=== PATIENT | male | born 1945 | race Two or more races ===

== ENCOUNTER 2024-11-26 11:54 | Inpatient (IN) | payer OTHER, MEDICARE ==
[~2024-11-26] VITALS: Ht 182.9 cm; Wt 90.5 kg
[2024-11-26 12:47] VITALS: PULSE 86; RESP 13; O2SAT 96
[2024-11-26 13:00] LABS: Basophils # (auto) 0 10 ^3/uL (0-0.2); Basophils % (auto) 0.7 % (0.0-2.0); Eosinophils # (auto) 0.1 10 ^3/uL (0-0.8); Eosinophils % (auto) 1.7 % (0.0-7.0); Hematocrit 40.4 % (41.0-53.0); Hemoglobin 13.9 g/dL (13.5-17.5); Lymphocytes # (auto) 1.3 10 ^3/uL (0.4-5.4); Lymphocytes % (auto) 24.5 % (10.0-50.0); Mean Corpuscular Hemoglobin 30.8 pg (28.0-32.0); Mean Corpuscular Hgb Conc. 34.4 g/dL (32.0-36.0); Mean Corpuscular Volume 89.5 fL (80.0-100.0); Monocytes # (auto) 0.7 10 ^3/uL (0-1.3); Monocytes % (auto) 12.6 % (0.0-12.0); Neutrophils # (auto) 3.3 10 ^3/uL (1.6-8.6); Neutrophils % (auto) 60.5 % (37.0-80.0); Nucleated Red Blood Cells % 0.1 %; Platelet Count (auto) 211 10^3/uL (140-450); Red Blood Cells 4.51 10^6/uL (4.5-5.90); Red Cell Distribution Width 14.3 % (11.8-14.3); White Blood Cell 5.5 10^3/uL (4.4-10.8)
--- NOTE | 2024-11-26 13:04 | DVH ---
EXAM: XY CHEST PORTABLE TECHNIQUE: Single frontal chest radiograph CLINICAL HISTORY: surgery COMPARISON: None Findings/Impression: Frontal chest radiograph demonstrates no acute osseous or superficial soft tissue abnormalities. The trachea is midline. The cardiac silhouette and mediastinum are within normal limits. Minimal right basilar atelectasis. No pneumothorax, pleural effusions, or consolidations.
--- NOTE | 2024-11-26 13:07 | DVH ---
EXAM: XY PELVIS AP CLINICAL HISTORY: surgery COMPARISON: None TECHNIQUE: XY PELVIS AP Findings/Impression: Single frontal view of the pelvis. There is no evidence of an acute fracture, dislocation, blastic, or lytic lesions. Mild left and mode rate right hip degenerative changes. No radiopaque foreign bodies. No joint effusion or superficial soft tissue abnormalities.
[2024-11-26 13:12] LABS: Anion Gap 10 (5-15); Carbon Dioxide 25 mmol/L (20-31); Chloride 105 mmol/L (98-107); Potassium 4.5 mmol/L (3.5-5.1); Sodium 140 mmol/L (136-145)
[2024-11-26 13:16] LABS: INR 1.13 (0.9-1.15); Partial Thromboplastin Time 28.9 SEC (24.5-34.5); Prothrombin Time 11.8 sec (9.3-11.8)
--- NOTE | 2024-11-26 13:17 | ED.PDOC ---
History of Present Illness HPI Comments 79 year old male presents to the ED with a chief complaint of RT hip pain. Patient states he was sent by Dr. Tomlinson from pre-operative testing. Patient states he has a hip replacement scheduled for tomorrow, lives in [place] and was not able to make it to his appointment on 11/24/24. States current pain is 1 0/10, takes Tylenol for pain. No other symptoms or modifying factors present at this time. Chief Complaint: Pelvic Pain Time Seen by MD: 13:10 Reviewed Notes: Medications, Allergies Allergies: Coded Allergies: NO KNOWN ALLERGIES (Unverified , 11/26/24) Information Source: Patient, Relative Mode of Arrival: Ambulatory Severity: Moderate Timing: Hours Duration: Since onset Prehospital treatment: None Past Medical History PAST MEDICAL HISTORY: Denies Surgical History: Denies all surgeries Family History Family History: Reviewed,noncontributory to illness, No family hx of Cancer, No family hx of DM, No family hx of Heart kishor, No family hx of HTN, No family hx ofKidney kishor, No family hx of Liver kishor, No family hx of Lung kishor, No family hx of Stroke Social History Smoker: Non-Smoker Alcohol: Denies ETOH Use Drugs: Denies Drug Use Lives In: Home Constitutional: denies: chills, diaphoresis, fatigue, fever, malaise, sweats, weakness, others EENTM: denies: blurred vision, double vision, ear bleeding, ear discharge, ear drainage, ear pain, ear ringing, eye pain, eye redness, hearing loss, mouth pain, mouth swelling, nasal discharge, nose bleeding, nose congestion, nose pain, photophobia, tearing, throat pain, throat swelling, voice changes, others Respiratory: denies: cough, hemoptysis, orthopnea, SOB at rest, shortness of breath, SOB with excertion, stridor, wheezing, others Cardiovascular: denies: chest pain, dizzy spells, diaphoresis, Dyspnea on exertion, edema, irregular heart beat, left arm pain, lightheadedness, palpitations, PND, syncope, others Gastrointestinal: denies: abdomen distended, abdominal pain, blood streaked bowels, constipated, diarrhea, dysphagia, difficulty swallowing, hematemesis, melena, nausea, poor appetite, poor fluid intake, rectal bleeding, rectal pain, vomiting, others Genitourinary: denies: burning, dysuria, flank pain, frequency, hematuria, incontinence, penile discharge, penile sore, pain, testicle pain, testicle swelling, urgency, others Neurological: denies: dizziness, fainting, headache, left sided numbness, left sided weakness, numbness, paresthesia, pre-existing deficit, right sided numbness, right sided weakness, seizure, speech problems, tingling, tremors, weakness, others Musculoskeletal: reports: others (RT hip pain, RT knee pain, RT pelvic pain); denies: back pain, gout, joint pain, joint swelling, muscle pain, muscle stiffness, neck pain Integumetry: denies: bruises, change in color, change in hair/nails, dryness, laceration, lesions, lumps, rash, wounds, others Allergic/Immunocompromised: denies: Difficulty Healing, Frequent Infections, Hives, Itching, others Hematologic/Lymphatic: denies: anemia, blood clots, easy bleeding, easy bruising, swollen glands, others Endocrine: denies: excessive hunger, excessive sweating, excessive thirst, excessive urination, flushing, intolerance to cold, intolerance to heat, unexplained weight gain, unexplained weight loss, others Psychiatric: denies: anxiety, bipolar disorder, depression, hopeless, panic disorder, schizophrenia, sleepless, suicidal, others All Other Systems: Reviewed and Negative Physical Exam General Appearance: Normal HEENT: Normal ENT Inspection, Pharynx Normal, TMs Normal Neck: Full Range of Motion, Non-Tender, Normal, Normal Inspection Respiratory: Chest Non-Tender, Lungs Clear, No Accessory Muscle Use, No Respiratory Distress, Normal Breath Sounds Cardiovascular: No Edema, No JVD, No Murmur, No Gallop, Normal Peripheral Pulses, Regular Rate/Rhythm Breast Exam: Deferred Gastrointestinal: No Organomegaly, Non Tender, No Pulsatile Mass, Normal Bowel Sounds, Soft Genitalia: Deferred Pelvic: Deferred Rectal: Deferred Extremities: No calf tenderness, Normal capillary refill, Normal inspection, Normal range of motion, Non-tender, No pedal edema Musculoskeletal : Apperance: Normal Neurologic: Alert, wood heel back liner II-XII nml as Tested, No Motor Deficits, Normal Affect, Normal Mood, No Sensory Deficits Cerebellar Function: Normal Reflexes: Normal Skin: Dry, Normal Color, Warm Lymphatic: No Adenopathy Was a procedure done? Was a procedure done?: No Differential Dx Considerations may include: Right hip strain, hip fracture, X-Ray, Labs, Meds, VS Vital Signs Date Time Temp Pulse Resp B/P (MAP) Pulse Ox O2 Delivery O2 Flow Rate FiO2 11/26/24 12:47 86 13 96 Room Air* 0 21 11/26/24 12:47 97.7 97 13 156/88 (110) 96 97.7 11/26/24 12:28 98.3 87 16 104/83 (90) 97 98.3 Lab Test 11/26/24 12:53 Range/Units White Blood Count 5.5 4.4-10.8 10^3/uL Red Blood Count 4.51 4.5-5.90 10^6/uL Hemoglobin 13.9 13.5-17.5 g/dL Hematocrit 40.4 L 41.0-53.0 % Mean Corpuscular Volume 89.5 80.0-100.0 fL Mean Corpuscular Hemoglobin 30.8 28.0-32.0 pg Mean Corpuscular Hemoglobin Concent 34.4 32.0-36.0 g/dL Red Cell Distribution Width 14.3 11.8-14.3 % Platelet Count 211 140-450 10^3/uL Mean Platelet Volume 7.0 6.9-10.8 fL Neutrophils (%) (Auto) 60.5 37.0-80.0 % Lymphocytes (%) (Auto) 24.5 10.0-50.0 % Monocytes (%) (Auto) 12.6 H 0.0-12.0 % Eosinophils (%) (Auto) 1.7 0.0-7.0 % Basophils (%) (Auto) 0.7 0.0-2.0 % Neutrophils # (Auto) 3.3 1.6-8.6 10 ^3/uL Lymphocytes # (Auto) 1.3 0.4-5.4 10 ^3/uL Monocytes # (Auto) 0.7 0-1.3 10 ^3/uL Eosinophils # (Auto) 0.1 0-0.8 10 ^3/uL Basophils # (Auto) 0 0-0.2 10 ^3/uL Nucleated Red Blood Cells 0.1 % Prothrombin Time 11.8 9.3-11.8 sec Prothrombin Time INR 1.13 0.9-1.15 Activated Partial Thromboplast Time 28.9 24.5-34.5 SEC Sodium Level 140 136-145 mmol/L Potassium Level 4.5 3.5-5.1 mmol/L Chloride Level 105 98-107 mmol/L Carbon Dioxide Level 25 20-31 mmol/L Anion Gap 10 5-15 Blood Urea Nitrogen 26 H 9-23 mg/dL Creatinine 1.52 H 0.700-1.30 mg/dL Glomerular Filtration Rate Calc 46 >90 mL/min BUN/Creatinine Ratio 17.1 10.0-20.0 Serum Glucose 207 H 74-106 mg/dL Calcium Level 10.0 8.7-10.4 mg/dL [place] [address] Ph: [phone] DIAGNOSTIC IMAGING Diagnostic Imaging Report : [id number] Signed PATIENT: JACKY LOZANO ACCT: [id number] UNIT: [id number] : 1945 LOC: ER ROOM / BED: / AGE / SEX: 79 / M ADM STATUS: REG ER SERVICE 1232 ORDERING PHYSICIAN: GELY ARIAS MD PROCEDURE(s): CXRP - CHEST PORTABLE REASON: surgery ORDER NUMBER(s): [id number], ACCESSION NUMBER(s): [id number] EXAM: XY CHEST PORTABLE TECHNIQUE: Single frontal chest radiograph CLINICAL HISTORY: surgery COMPARISON: None Findings/Impression: Frontal chest radiograph demonstrates no acute osseous or superficial soft tissue abnormalities. The trachea is midline. The cardiac silhouette and mediastinum are within normal limits. Minimal right basilar atelectasis. No pneumothorax, pleural effusions, or consolidations. ATED BY: MOLLY JEAN BAPTISTE DO DICTATED DATE/TIME: 11/26/24 1301 SIGNED BY: MOLLY JEAN BAPTISTE DO SIGNED DATE/TIME: 11/26/24 1301 CC: [place] [address] Ph: [phone] DIAGNOSTIC IMAGING Diagnostic Imaging Report : [id number] Signed PATIENT: JACKY LOZANO ACCT: [id number] UNIT: [id number] : 1945 LOC: ER ROOM / BED: / AGE / SEX: 79 / M ADM STATUS: REG ER SERVICE 1232 ORDERING PHYSICIAN: GELY ARIAS MD PROCEDURE(s): PELVS - PELVIS AP REASON: surgery ORDER NUMBER(s): [id number], ACCESSION NUMBER(s): [id number] EXAM: XY PELVIS AP CLINICAL HISTORY: surgery COMPARISON: None TECHNIQUE: XY PELVIS AP Findings/Impression: Single frontal view of the pelvis. There is no evidence of an acute fracture, dislocation, blastic, or lytic lesions. Mild left and moderate right hip degenerative changes. No radiopaque foreign bodies. No joint effusion or superficial soft tissue abnormalities. ATED BY: MOLLY JEAN BAPTISTE DO DICTATED DATE/TIME: 11/26/24 1304 SIGNED BY: MOLLY JEAN BAPTISTE DO SIGNED DATE/TIME: 11/26/24 1304 CC: Time of 1ST Reevaluation: 13:40 Reevaluation 1ST: Unchanged Patient Education/Counseling: Diagnosis, Treatment, Prognosis Family Education/Counseling: Diagnosis, Treatment, Prognosis Departure 1 Departure Time of Disposition: 13:32 (Patient with right hip strain and difficulty ambulating went uncontrollable pain. We will admit patient for further workup and expert consultation) Impression: Primary Impression: Strain of right hip Qualified Codes: S76.011A - Strain of muscle, fascia and tendon of right hip, initial encounter Additional Impression: Right hip pain Disposition: ADMITTED INPATIENT Admit to: Med Surg Condition: Serious Critical Care Note Critical Care Time?: No Stability Stability form required: No I personally scribed for GELY ARIAS MD ([email or web address]) on 11/26/24 at 13:17. Electronically submitted by Letty Brock ([email or web address]). I personally scribed for GELY ARIAS MD ([email or web address]) on 11/26/24 at 13:18. Electronically submitted by Letty Brock ([email or web address]). GELY ARIAS MD Nov 26, 2024 13:17
[2024-11-26 13:18] LABS: BUN/Creatinine Ratio 17.1 (10.0-20.0)
[2024-11-26 13:22] LABS: Blood Urea Nitrogen 26 mg/dL (9-23); Glucose 207 mg/dL (74-106)
[2024-11-26] MEDS ORDERED: MORPHINE SULFATE INJ 2 MG/ml SYRG IV PRN (19:30)
[2024-11-26] MEDS ORDERED: ONDANSETRON HCL 4 MG/2 ML VIAL IV PRN (19:30)
[2024-11-26] MEDS: SODIUM CHLORIDE 0.9% 1,000 ML IV ONE (19:40)
[2024-11-26 21:29] VITALS: BP 157/85; PULSE 94; RESP 18; TEMP 97.7; O2SAT 94
[2024-11-26 21:35] VITALS: BP 157/85; PULSE 94; RESP 18; TEMP 97.7; O2SAT 98
[2024-11-26] MEDS ORDERED: AMLO1TAB23 PO (21:42)
[2024-11-26] MEDS ORDERED: INSU300I5 SC (21:42)
[2024-11-26] MEDS ORDERED: LOSA-535 PO (21:42)
[2024-11-26] MEDS: MORPHINE SULFATE 4 MG/ML SYR/VIAL IV PRN (22:22)
--- NOTE | 2024-11-26 23:29 | DVHHP2 ---
History of Present Illness Reason for Visit: Hip pain History of Present Illness 79-year-old male presents for evaluation of right hip pain. Patient with a history of chronic right hip pain was sent in by his orthopedic surgeon to have a right hip replacement tomorrow morning. Denies any other acute complaints. Past Medical History Denies Past Surgical History Denies Family History Noncontributory Smoke: No ALCOHOL: none Drugs: None Lives: with Family Review of Systems Review of Systems Review of systems are currently negative otherwise addressed in HPI. Allergies: Coded Allergies: NO KNOWN ALLERGIES (Unverified , 11/26/24) Medications Current Medications Medications Dose Ordered Sig/Anjana Route Start Time Stop Time Status Last Admin Dose Admin Ondansetron HCl 4 mg Q4HP PRN IV 11/26/24 19:30 Morphine Sulfate 2 mg Q4HPRN PRN IV 11/26/24 22:30 11/26/24 22:22 2 MG Exam Vital Signs Vital Signs Date Time Temp Pulse Resp B/P (MAP) Pulse Ox O2 Delivery O2 Flow Rate FiO2 11/26/24 22:22 94 18 157/85 11/26/24 21:35 97.7 98 97.7 11/26/24 21:30 Room Air* 0 21 Exam Gen: 79-year-old male in mild distress Skin: Warm, dry, normal color and texture, no rash. HEENT: Normocephalic atraumatic, mucous membranes moist and pink. Neck: Cervical and supraclavicular nodes normal without enlargement, trachea is midline, thyroid gland is normal without masses. Pulmonary: Clear to auscultation and percussion bilaterally. Cardiac: Regular rate and rhythm. No murmur Abdomen: Soft, nontender, nondistended, bowel sounds present all 4 quadrants, no guarding, no rigidity, no organomegaly. Extremities: No cyanosis, clubbing, no edema Neuro: Cranial nerves II through XII grossly intact, normal affect and speech, no focal motor deficits. Labs/Xrays ORDERING PHYSICIAN: GELY ARIAS MD PROCEDURE(s): CXRP - CHEST PORTABLE REASON: surgery ORDER NUMBER(s): [id number], ACCESSION NUMBER(s): [id number] EXAM: XY CHEST PORTABLE TECHNIQUE: Single frontal chest radiograph CLINICAL HISTORY: surgery COMPARISON: None Findings/Impression: Frontal chest radiograph demonstrates no acute osseous or superficial soft tissue abnormalities. The trachea is midline. The cardiac silhouette and mediastinum are within normal limits. Minimal right basilar atelectasis. No pneumothorax, pleural effusions, or consolidations. RING PHYSICIAN: GELY ARIAS MD PROCEDURE(s): PELVS - PELVIS AP REASON: surgery ORDER NUMBER(s): [id number], ACCESSION NUMBER(s): [id number] EXAM: XY PELVIS AP CLINICAL HISTORY: surgery COMPARISON: None TECHNIQUE: XY PELVIS AP Findings/Impression: Single frontal view of the pelvis. There is no evidence of an acute fracture, dislocation, blastic, or lytic lesions. Mild left and moderate right hip degenerative changes. No radiopaque foreign bodies. No joint effusion or superficial soft tissue abnormalities. Labs Test 11/26/24 12:53 Range/Units White Blood Count 5.5 4.4-10.8 10^3/uL Red Blood Count 4.51 4.5-5.90 10^6/uL Hemoglobin 13.9 13.5-17.5 g/dL Hematocrit 40.4 L 41.0-53.0 % Mean Corpuscular Volume 89.5 80.0-100.0 fL Mean Corpuscular Hemoglobin 30.8 28.0-32.0 pg Mean Corpuscular Hemoglobin Concent 34.4 32.0-36.0 g/dL Red Cell Distribution Width 14.3 11.8-14.3 % Platelet Count 211 140-450 10^3/uL Mean Platelet Volume 7.0 6.9-10.8 fL Neutrophils (%) (Auto) 60.5 37.0-80.0 % Lymphocytes (%) (Auto) 24.5 10.0-50.0 % Monocytes (%) (Auto) 12.6 H 0.0-12.0 % Eosinophils (%) (Auto) 1.7 0.0-7.0 % Basophils (%) (Auto) 0.7 0.0-2.0 % Neutrophils # (Auto) 3.3 1.6-8.6 10 ^3/uL Lymphocytes # (Auto) 1.3 0.4-5.4 10 ^3/uL Monocytes # (Auto) 0.7 0-1.3 10 ^3/uL Eosinophils # (Auto) 0.1 0-0.8 10 ^3/uL Basophils # (Auto) 0 0-0.2 10 ^3/uL Nucleated Red Blood Cells 0.1 % Prothrombin Time 11.8 9.3-11.8 sec Prothrombin Time INR 1.13 0.9-1.15 Activated Partial Thromboplast Time 28.9 24.5-34.5 SEC Sodium Level 140 136-145 mmol/L Potassium Level 4.5 3.5-5.1 mmol/L Chloride Level 105 98-107 mmol/L Carbon Dioxide Level 25 20-31 mmol/L Anion Gap 10 5-15 Blood Urea Nitrogen 26 H 9-23 mg/dL Creatinine 1.52 H 0.700-1.30 mg/dL Glomerular Filtration Rate Calc 46 >90 mL/min BUN/Creatinine Ratio 17.1 10.0-20.0 Serum Glucose 207 H 74-106 mg/dL Calcium Level 10.0 8.7-10.4 mg/dL Assessment/Plan Assessment/Plan Assessment Right hip pain Plan Admit the patient to [facility] to the hospitalist Orthopedic consultation Pain management NPO Continue treatment per orders Plan discussed with: Patient My Orders Orders - SHIREEN RAMIREZ Procedure Category Date Status Time Admit ADMIT 11/26/24 Transmitted 19:18 Ondansetron Hcl PHA 11/26/24 In Process (Zofran) 19:30 Npo (Nothing By DIET 11/27/24 Transmitted Mouth) Diet Breakfast Condition: Stable UGO 11/26/24 In Process 19:18 Bedrest With Bathroom UGO 11/26/24 In Process Privileg 19:18 Sodium Chloride 0.9% PHA 11/26/24 In Process 19:30 Morphine Sulfate PHA 11/26/24 In Process Injection 22:30 Date of Service: Nov 26, 2024 Billing Provider: SHIREEN RAMIREZ Common Visit Codes: [id number] INP/OBS CARE (MOD) SHIREEN RAMIREZ Nov 26, 2024 23:29
[2024-11-27 01:00] VITALS: BP 143/83; PULSE 80; RESP 18; TEMP 98.5; O2SAT 98
[2024-11-27 01:57] LABS: Urine Bacteria None Seen /hpf (None Seen)
[2024-11-27 02:12] LABS: Urine Blood TRACE /uL (Negative); Urine Clarity Clear (Clear); Urine Color Light-Yellow (Yellow); Urine Mucus FEW (None Seen); Urine Protein, UAD 1+ (Negative); Urine Specific Gravity 1.014 (1.001-1.035); Urine Squamous Epithelial Cell None Seen /hpf (<5); Urine Urobilinogen Normal (Negative); Urine WBC < 1 /HPF (0-3); Urine pH 6.5 (5.0-9.0)
[2024-11-27 05:00] VITALS: BP 151/86; PULSE 72; RESP 18; TEMP 98.2; O2SAT 98
--- NOTE | 2024-11-27 05:30 | ECG ---
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
[2024-11-27 08:00] VITALS: PULSE 82; RESP 18; O2SAT 95
[2024-11-27 09:00] VITALS: BP 154/100; PULSE 82; RESP 18; TEMP 98.2; O2SAT 95
[2024-11-27] MEDS ORDERED: MORPHINE SULF PF 5 MG/10 ML VIAL ONE ×2 (12:48→14:34)
[2024-11-27] MEDS ORDERED: fentaNYL CITRATE 100 MCG/2 ML VL ONE (12:48)
[2024-11-27] MEDS ORDERED: MIDAZOLAM HCL 2MG/2ML 2ml VIAL (1mg/ml) ONE (12:48)
[2024-11-27] MEDS ORDERED: LIDOCAINE W/ EPINEPHRINE 1% 20ML VIAL ONE (12:49)
[2024-11-27] MEDS ORDERED: METOCLOPRAMIDE HCL 5MG/ml INJ 2ml VIAL ONE (12:49)
[2024-11-27] MEDS ORDERED: ONDANSETRON HCL 4 MG/2 ML VIAL ONE (12:49)
[2024-11-27] MEDS ORDERED: PROPOFOL 10 MG/ML 20 ML IV ONE (13:48)
[2024-11-27] MEDS ORDERED: ROCURONIUM 10MG/ML 10ML VIAL IV ONE (13:48)
--- NOTE | 2024-11-27 14:14 | DVHPN2 ---
Subjective Denies any symptoms at this time Reviewed: Care Plan, H&P, Labs, Medications Changes from previous H/P or p: No Changes Objective Vitals Vital Signs Date Time Temp Pulse Resp B/P (MAP) Pulse Ox O2 Delivery O2 Flow Rate FiO2 11/27/24 09:00 98.2 82 18 154/100 (118) 95 98.2 11/26/24 21:30 Room Air* 0 21 Intake/Output Intake and Output 11/27/24 07:00 Intake Total 750 ml Output Total 800 ml Balance -50 ml Intake Oral 0 ml IV Total 750 ml Output Urine Total 800 ml General Appearance: Alert, Oriented X3, Cooperative, No acute distress HEENT: Atraumatic Cardiovascular: Normal S1, Normal S2 Abdomen: Normal bowel sounds, Soft, No tenderness, No hepatospenomegaly Musculoskeletal: Normal sensory function, Normal motor function Neuro: Normal speech Skin: Dry, Intact Psych/Mental Status: Mental status NL, Mood NL Medications Current Medications Medications Dose Ordered Sig/Anjana Route Start Time Stop Time Status Last Admin Dose Admin Ondansetron HCl 4 mg Q4HP PRN IV 11/26/24 19:30 Morphine Sulfate 2 mg Q4HPRN PRN IV 11/26/24 22:30 11/26/24 22:22 2 MG Laboratory Results Laboratory Tests 11/26/24 12:53 Urinalysis Test 11/27/24 01:47 Urine Color Light-yellow (Yellow) Urine Clarity Clear (Clear) Urine pH 6.5 (5.0-9.0) Urine Specific [place] 1.014 (1.001-1.035) Urine Protein 1+ (Negative) H Urine Ketones Negative (Negative) Urine Blood Trace /uL (Negative) H Urine Nitrite Negative (Negative) Urine Bilirubin Negative (Negative) Urine Urobilinogen Normal mg/dL (Negative) Urine Leukocyte Esterase Negative /uL (Negative) Urine RBC 6 /hpf (0 - 3) Urine Microscopic WBC < 1 /HPF (0-3) Urine Squamous Epithelial Cells None seen /hpf (<5) Urine Bacteria None seen /hpf (None Seen) Urine Mucus Few (None Seen) Urine Glucose 2+ mg/dL (Normal) H Labs and/or images reviewed: Labs reviewed by me, Image(s) reviewed by me Assessment/Plan Assessment/Plan Impression: Right hip pain -CKD stage IIIA Plan: -ortho surgery consultation: Plans for total right hip replacement -pain management -PUD, DVT prophylaxis -repeat labs in a.m. Total time spent with patient discussing and formulating plan of care: 35 minutes. This medical document was created using an electronic medical record system with [employer] dictation system. Although this document has been carefully reviewed, there may still be some phonetic and typographical errors. These areas are purely typographical due to imperfections of the software programs, and do not reflect any compromise in the patient's medical care. Plan discussed with: Patient, Other (RN) Date of Service: Nov 27, 2024 Billing Provider: DALE GREY NP Common Visit Codes: [id number] INP/OBS CARE(HIGH) DALE GREY NP Nov 27, 2024 14:14
[2024-11-27] MEDS ORDERED: DexAMETHasone SOD PHOS 10MG/1ML VIAL INJ ONE (14:28)
[2024-11-27] MEDS ORDERED: SUGAMMADEX 200mg/2ml Vial (100MG/ML) IV ONE (14:32)
[2024-11-27] MEDS ORDERED: KETOROLAC TROMETH 30 MG/ML 1ML VIAL ONE (14:34)
[2024-11-27] MEDS ORDERED: HYDROmorphone HCL 2 MG/ML VL/or syr IV PRN (15:15)
[2024-11-27] MEDS ORDERED: OXYCODONE W/ ACETAMINOPHEN 5/325MG TABLET PO PRN (15:15)
[2024-11-27 15:22] VITALS: PULSE 92; RESP 17; O2SAT 96
--- NOTE | 2024-11-27 15:29 | DVHOP2 ---
Operative Report - 2 Report Details Date: 11/27/24 Preop Diagnosis: Right hip osteonecrosis, osteoarthritis Postop Diagnosis: same Surgeon: López Katz MD Payroll Human Resources Assistant: Gurwinder Nava NP, MD Anesthesiologist: Frankie WAN Anesthesia: General, Regional Implant: migeul Consent: The patient was informed of the risks and benefits of the procedure. These include but are not limited to complications of anesthesia, postoperative infection, incomplete relief of symptoms, recurrence of symptoms, damage to blood vessels, nerves and tendons, deep venous thrombosis, pulmonary embolism and possible need for repeat surgery in the future. Complications: none Estimated Blood Loss: 250ml Name of Procedure Performed Right Total Hip Arthroplasty Procedure Details Procedure Details: The patient was brought to the operating room and placed in the lateral decubitus position. After adequate induction of anesthesia, the right hip was prepped and draped in the usual sterile fashion. A minimally invasive posterior approach was utilized. A skin incision was made over the posterior aspect of the right hip. Dissection was carried down through the subcutaneous tissue, and the fascia niki was incised in line with the skin incision. The short external rotators were identified, tagged, and released to expose the hip joint capsule. The hip capsule was incised, and the hip was dislocated posteriorly. The femoral head was resected using a power saw. Attention was then turned to the acetabulum, which was reamed sequentially to accommodate a size 58 [employer] G7 dual mobility cup. The cup was impacted into place with appropriate version and inclination, and screws were used for additional fixation as needed. Attention was then turned to the femur. The femoral canal was prepared with sequential broaching, and a size 12.5 extended RNL stem was selected and impacted into the femoral canal. A -3.5 head was placed onto the stem. The hip was reduced, and stability was assessed through a full range of motion. Excellent stability was confirmed with no impingement or dislocation. The wound was irrigated with copious amounts of normal saline. The short external rotators and capsule were repaired. The fascia niki was closed with interrupted sutures. The subcutaneous tissue was closed with absorbable sutures, and the skin was closed with luiza. A sterile dressing was applied, and the patient was transferred to the recovery room in stable condition. Condition Good Disposition Home with Health Services LÓPEZ KATZ DO Nov 27, 2024 15:29
[2024-11-27] MEDS ORDERED: hydrALAZINE HCL 20 MG/ML VL IV PRN (15:45)
[2024-11-27] MEDS: HYDROmorphone HCL 2 MG/ML VL/or syr IV PRN (15:48)
[2024-11-27] MEDS: HYDROmorphone HCL 2 MG/ML VL/or syr ONE (16:18)
--- NOTE | 2024-11-27 20:07 | DVH ---
CLINICAL INDICATION: postop TECHNIQUE: 2 radiographic views of the right hip were obtained. Comparison: None FINDINGS/IMPRESSION: There is no evidence of acute fracture or dislocation. Total hip replacement is noted on the right in normal alignment. There are no acute fractures. The visualized joint space is well maintained. The alignment is anatomical. There is no radiopaque foreign body.
[2024-11-27 21:00] VITALS: BP 138/84; PULSE 99; RESP 19; TEMP 97.2; O2SAT 96
[2024-11-27] MEDS: ceFAZolin 2 GM/D5W50ml 50 ML IV SCH (21:22)
[2024-11-27] MEDS: OXYCODONE W/ ACETAMINOPHEN 5/325MG TABLET PO PRN (21:33)
[2024-11-28 00:56] VITALS: BP 144/88; PULSE 100; RESP 17; TEMP 98.2; O2SAT 96
[2024-11-28 05:00] VITALS: BP 121/80; PULSE 99; RESP 17; TEMP 99; O2SAT 95
[2024-11-28] MEDS: KETOROLAC TROMETH 30 MG/ML 1ML VIAL IV ONE (07:32)
[2024-11-28] MEDS: METOCLOPRAMIDE HCL 5MG/ml INJ 2ml VIAL IV ONE (07:32)
[2024-11-28] MEDS: ONDANSETRON HCL 4 MG/2 ML VIAL IV ONE (07:33)
--- NOTE | 2024-11-28 08:12 | DVHPN2 ---
Progress Note Date Seen: Nov 28, 2024 Medical Necessity Reason Pt with a Central, PICC or Fol: No Subjective Patient reports: No new complaints Objective vital signs Vital Sign Date Time Temp Pulse Resp B/P (MAP) Pulse Ox O2 Delivery O2 Flow Rate FiO2 11/28/24 05:00 99.0 99 17 121/80 (94) 95 99.0 11/27/24 20:10 Room Air* 0 21 Total Intake and Output 11/27/24 11/27/24 11/28/24 15:00 23:00 07:00 Intake Total 100 ml 0 ml 250 ml Output Total 750 ml 515 ml Balance 100 ml -750 ml -265 ml medications Current Medications Medications Dose Ordered Sig/Anjana Route Start Time Stop Time Status Last Admin Dose Admin Ondansetron HCl 4 mg Q4HP PRN IV 11/26/24 19:30 Morphine Sulfate 2 mg Q4HPRN PRN IV 11/26/24 22:30 11/28/24 00:04 2 MG Cefazolin Sodium/ Dextrose 50 ml @ 50 mls/hr Q8HR IV 11/27/24 22:00 11/28/24 06:17 50 MLS/HR Hydromorphone HCl 1 mg Q2HPRN PRN IV 11/27/24 15:15 Hold Oxycodone/ Acetaminophen 1 tab Q4HP PRN PO 11/27/24 15:15 11/27/24 21:33 1 TAB Oxycodone/ Acetaminophen 2 tab Q4HP PRN PO 11/27/24 15:15 Hold Enoxaparin Sodium 40 mg DAILY SC 11/28/24 10:00 Examination: GENERAL:Normal, MSK:Abnormal laboratory and microbiology Laboratory Tests 11/26/24 12:53 Test 11/26/24 12:53 Range/Units Serum Glucose 207 H 74-106 mg/dL Problem List/Assessment/Plan Problem List/Assessment/Plan 79 year old male who is s/p right TASNEEM POD 1 1. WBAT with walker 2. Physical therapy 3. discussed posterior hip precautions 4. DVT ppx 5. pain control Plan discussed with: Patient My Orders My Orders Orders - RUEL HENDERSON NP Procedure Category Date Status Time R Hip Complete Xray XY 11/27/24 Resulted 15:12 Cefazolin 2 PHA 11/27/24 In Process [id number] (Ancef) 22:00 Hydromorphone PHA 11/27/24 In Process Injection (Dilaudid 15:15 Oxycodone W/ Acet PHA 11/27/24 In Process 5/325mg Tab (Percocet 15:15 Oxycodone W/ Acet PHA 11/27/24 In Process 5/325mg Tab (Percocet 15:15 Pt Request For Service PT 11/27/24 Logged 15:12 Weight Bearing UGO 11/27/24 In Process 15:12 Regular Diet DIET 11/27/24 Transmitted Dinner Advance Diet As UGO 11/27/24 In Process Tolerated 15:12 Enoxaparin Sodium PHA 11/28/24 In Process (Lovenox) 10:00 Date of Service: Nov 28, 2024 Billing Provider: GERBER FLAHERTY MD Common Visit Codes: NOT BILLABLE RUEL HENDERSON NP Nov 28, 2024 08:12
[2024-11-28 09:00] VITALS: BP 132/84; PULSE 98; RESP 15; TEMP 99.3; O2SAT 97
[2024-11-28] MEDS: ENOXAPARIN SOD 40 MG/0.4 ML SYRINGE SC SCH (09:34)
[2024-11-28 10:35] LABS: Chloride 104 mmol/L (98-107); Potassium 4.5 mmol/L (3.5-5.1)
[2024-11-28 10:36] LABS: Anion Gap 11 (5-15); Basophils # (auto) 0 10 ^3/uL (0-0.2); Basophils % (auto) 0.2 % (0.0-2.0); Eosinophils # (auto) 0 10 ^3/uL (0-0.8); Hematocrit 33.2 % (41.0-53.0); Hemoglobin 11.4 g/dL (13.5-17.5); Lymphocytes # (auto) 0.9 10 ^3/uL (0.4-5.4); Lymphocytes % (auto) 12.2 % (10.0-50.0); Mean Corpuscular Hemoglobin 30.7 pg (28.0-32.0); Mean Corpuscular Hgb Conc. 34.5 g/dL (32.0-36.0); Monocytes # (auto) 1.1 10 ^3/uL (0-1.3); Monocytes % (auto) 14.5 % (0.0-12.0); Neutrophils # (auto) 5.4 10 ^3/uL (1.6-8.6); Neutrophils % (auto) 73.1 % (37.0-80.0); Platelet Count (auto) 214 10^3/uL (140-450); Red Blood Cells 3.73 10^6/uL (4.5-5.90); Red Cell Distribution Width 14.5 % (11.8-14.3); White Blood Cell 7.4 10^3/uL (4.4-10.8)
[2024-11-28 10:37] LABS: Calcium 9.2 mg/dL (8.7-10.4)
[2024-11-28 10:41] LABS: BUN/Creatinine Ratio 16.8 (10.0-20.0)
[2024-11-28 10:43] LABS: Blood Urea Nitrogen 26 mg/dL (9-23); Carbon Dioxide 20 mmol/L (20-31); Glucose 383 mg/dL (74-106); Sodium 135 mmol/L (136-145)
[2024-11-28 13:00] VITALS: BP 140/78; PULSE 104; RESP 19; TEMP 98.6; O2SAT 95
[2024-11-28] MEDS ORDERED: DEXTROSE (50%) 50ML SYRG IV PRN (13:45)
[2024-11-28] MEDS: MORPHINE SULFATE 4 MG/ML SYR/VIAL IV PRN (14:22)
--- NOTE | 2024-11-28 14:46 | DVHPN2 ---
Subjective Patient reports having 10/10 pain to right hip. Reviewed: Care Plan, H&P, Labs, Medications Changes from previous H/P or p: No Changes General: Per HPI Objective Vitals Vital Signs Date Time Temp Pulse Resp B/P (MAP) Pulse Ox O2 Delivery O2 Flow Rate FiO2 11/28/24 14:22 104 21 140/78 11/28/24 13:00 98.6 95 98.6 11/28/24 08:10 Room Air* 0 21 Intake/Output Intake and Output 11/28/24 07:00 Intake Total 350 ml Output Total 1265 ml Balance -915 ml Intake Oral 200 ml IV Total 150 ml Output Urine Total 1265 ml General Appearance: Alert, Oriented X3, Cooperative, No acute distress HEENT: Atraumatic Cardiovascular: Normal S1, Normal S2 Abdomen: Normal bowel sounds, Soft, No tenderness, No hepatospenomegaly Musculoskeletal: Normal sensory function, Normal motor function Neuro: Normal speech Skin: Dry, Intact Psych/Mental Status: Mental status NL, Mood NL Medications Current Medications Medications Dose Ordered Sig/Anjana Route Start Time Stop Time Status Last Admin Dose Admin Ondansetron HCl 4 mg Q4HP PRN IV 11/26/24 19:30 Cefazolin Sodium/ Dextrose 50 ml @ 50 mls/hr Q8HR IV 11/27/24 22:00 11/28/24 14:22 50 MLS/HR Hydromorphone HCl 1 mg Q2HPRN PRN IV 11/27/24 15:15 Hold Oxycodone/ Acetaminophen 1 tab Q4HP PRN PO 11/27/24 15:15 11/28/24 12:52 1 TAB Oxycodone/ Acetaminophen 2 tab Q4HP PRN PO 11/27/24 15:15 Hold Enoxaparin Sodium 40 mg DAILY SC 11/28/24 10:00 11/28/24 09:34 40 MG Pantoprazole Sodium 40 mg DAILY@0600 PO 11/29/24 06:00 Diagnostic Test (Pha) 1 strip ACHS 11/28/24 17:00 Insulin Human Regular HS SC 11/28/24 22:00 Insulin Human Regular AC SC 11/28/24 17:00 Dextrose 50 ml UD PRN IV 11/28/24 13:45 Morphine Sulfate 2 mg Q3HPRN PRN IV 11/28/24 13:45 11/28/24 14:22 2 MG Laboratory Results Laboratory Tests 11/28/24 10:15 Chemistry Test 11/28/24 10:15 Calcium Level 9.2 mg/dL (8.7-10.4) HgA1c, TSH Test 11/28/24 10:15 Hemoglobin A1c 8.1 % A1C (<5.7) H Urinalysis Test 11/27/24 01:47 Urine Color Light-yellow (Yellow) Urine Clarity Clear (Clear) Urine pH 6.5 (5.0-9.0) Urine Specific [place] 1.014 (1.001-1.035) Urine Protein 1+ (Negative) H Urine Ketones Negative (Negative) Urine Blood Trace /uL (Negative) H Urine Nitrite Negative (Negative) Urine Bilirubin Negative (Negative) Urine Urobilinogen Normal mg/dL (Negative) Urine Leukocyte Esterase Negative /uL (Negative) Urine RBC 6 /hpf (0 - 3) Urine Microscopic WBC < 1 /HPF (0-3) Urine Squamous Epithelial Cells None seen /hpf (<5) Urine Bacteria None seen /hpf (None Seen) Urine Mucus Few (None Seen) Urine Glucose 2+ mg/dL (Normal) H Labs and/or images reviewed: Labs reviewed by me, Image(s) reviewed by me Assessment/Plan Assessment/Plan Impression: Right hip pain -CKD stage IIIA -diabetes mellitus -primary hypertension -degenerative joint disease of back, left shoulder, bilateral knee Plan: -regular insulin sliding scale -pain management: Increase Percocet to 10/3251 tabs every 6 hours as needed, continue IV morphine for breakthrough pain -continue physical therapy. Reports of walking 50 ft today -bowel regimen -PUD, DVT prophylaxis Total time spent with patient discussing and formulating plan of care: 35 minutes. This medical document was created using an electronic medical record system with [employer] dictation system. Although this document has been carefully reviewed, there may still be some phonetic and typographical errors. These areas are purely typographical due to imperfections of the software programs, and do not reflect any compromise in the patient's medical care. Plan discussed with: Patient, Other (RN) My Orders Orders - DALE GREY NP Procedure Category Date Status Time Pantoprazole Tablet PHA 11/29/24 In Process (Protonix Tablet) 06:00 Glucose Blood PHA 11/28/24 In Process (Accu-Chek Comfort 17:00 Insulin R (Human) PHA 11/28/24 In Process (Insulin R) 22:00 Insulin R (Human) PHA 11/28/24 In Process (Insulin R) 17:00 Dextrose 50% Syringe PHA 11/28/24 In Process 13:45 Regular Diet DIET 11/28/24 Transmitted Dinner Morphine Sulfate PHA 11/28/24 In Process Injection 13:45 Date of Service: Nov 28, 2024 Billing Provider: DALE GREY NP Common Visit Codes: [id number] INP/OBS CARE(HIGH) DALE GREY NP Nov 28, 2024 14:46
[2024-11-28 17:00] VITALS: BP 151/90; PULSE 94; RESP 20; TEMP 98.3; O2SAT 98
[2024-11-28] MEDS: OXYCODONE W/ ACETAMINOPHEN 5/325MG TABLET PO PRN (17:25)
[2024-11-28] MEDS: ACCU-CHEK COMFORT CURVE STRIP VI SCH (17:26)
[2024-11-28] MEDS: InsuLIN REG 1unit/0.01ml Soln (100units/ml) SC SCH ×2 (17:26→21:14)
[2024-11-28 21:00] VITALS: BP 136/79; PULSE 104; RESP 18; TEMP 98.2; O2SAT 98
[2024-11-28] MEDS: MELATONIN 5 MG TAB PO ONE (21:06)
[2024-11-28] MEDS: DOCUSATE SOD 100 MG CAP PO SCH (21:06)
[2024-11-29] VITALS (7 sets, daily range): BP systolic 110–175; BP diastolic 71–96; PULSE 99–120; RESP 14–21; TEMP 98.3–102; O2SAT 90–97
[2024-11-29] MEDS: PANTOPRAZOLE 40 MG TAB PO SCH (06:28)
--- NOTE | 2024-11-29 08:08 | DVHPN2 ---
Progress Note Date Seen: Nov 29, 2024 Medical Necessity Reason Pt with a Central, PICC or Fol: No Subjective Patient reports: Feels worse Objective vital signs Vital Sign Date Time Temp Pulse Resp B/P (MAP) Pulse Ox O2 Delivery O2 Flow Rate FiO2 11/29/24 05:00 103 18 143/84 11/29/24 05:00 98.3 91 98.3 11/28/24 19:58 Room Air* 0 21 Total Intake and Output 11/28/24 11/28/24 11/29/24 15:00 23:00 07:00 Intake Total 50 ml 1240 ml 890 ml Output Total 830 ml 1675 ml Balance 50 ml 410 ml -785 ml medications Current Medications Medications Dose Ordered Sig/Anjana Route Start Time Stop Time Status Last Admin Dose Admin Ondansetron HCl 4 mg Q4HP PRN IV 11/26/24 19:30 Cefazolin Sodium/ Dextrose 50 ml @ 50 mls/hr Q8HR IV 11/27/24 22:00 11/29/24 06:29 50 MLS/HR Enoxaparin Sodium 40 mg DAILY SC 11/28/24 10:00 11/28/24 09:34 40 MG Pantoprazole Sodium 40 mg DAILY@0600 PO 11/29/24 06:00 11/29/24 06:28 40 MG Diagnostic Test (Pha) 1 strip ACHS 11/28/24 17:00 11/29/24 06:29 1 STRIP Insulin Human Regular HS SC 11/28/24 22:00 11/28/24 21:14 3 UNITS Insulin Human Regular AC SC 11/28/24 17:00 11/29/24 06:34 6 UNITS Dextrose 50 ml UD PRN IV 11/28/24 13:45 Morphine Sulfate 2 mg Q3HPRN PRN IV 11/28/24 13:45 11/29/24 04:20 2 MG Oxycodone/ Acetaminophen 2 tab Q6HP PRN PO 11/28/24 14:45 11/29/24 01:23 2 TAB Docusate Sodium 100 mg BID PO 11/28/24 22:00 11/28/24 21:06 100 MG laboratory and microbiology Laboratory Tests 11/28/24 10:15 Test 11/28/24 10:15 Range/Units Serum Glucose 383 #H 74-106 mg/dL Problem List/Assessment/Plan Problem List/Assessment/Plan 79 year old male who is s/p right TASNEEM POD 2 1. WBAT with walker 2. Physical therapy 3. discussed posterior hip precautions 4. DVT ppx 5. pain control 6. patient to follow up in 2 weeks as scheduled on 12/12/2024 at 3:30 7. clear for discharge home from orthopedic standpoint with the following recommendations: POSTOPERATIVE Posterior Total Hip INSTRUCTIONS Activity: 1. You can bear as much weight as you tolerate on your hip unless specifically instructed otherwise. You may use the walking aid which you were discharged with and switch to a cane whenever you feel comfortable doing so. You should use an assistive device until you can walk comfortably without it. Keep in mind that every patient moves at their own speed of recovery so take your time. 2. A physical therapist will visit you at home. 3. Although guarantees against a dislocation do not exist, the hip was noted to be sufficiently stable in surgery. Below are motions that you should dischargenot do for 4-6 weeks, depending on the surgical approach used. If there are questions, please call the office. a. Bend forward past 90 degrees b. Sit on a regular low chair, couch, car seat etc... c. Cross your legs d. Use a regular low toilet seat. e. Sleep on your stomach or on either side. 3. High impact activity such as jumping, aerobics, tennis, and skiing are not permitted during the first 3 months after surgery. These activities can contribute to accelerated wear and should be done with caution after this time. Discuss this with your surgeon if you have questions. 4. Although a bath or whirlpool is NOT permitted during the first 2-3 weeks, you may shower as soon as you get home from the hospital provided you are able to keep your bandage clean and dry and there is no wound drainage. If you are unable to place a secured covering over your bandage bed bath/sponge bath may likely be the more appropriate option. 5. Swimming is not permitted until the wound is healed, which typically occurs approximately 3-4 weeks after surgery. Wound Management: If the wound is draining please change the gauze pad on the wound until it stops. If drainage persists past 10 days please notify our office. If there is a sticky gel dressing over your wound, you may leave this in place for as long as it is clean and dry. If it becomes loose or causes skin irritation, it is OK to remove it and place clean gauze over your wound. 1. You might notice some bruising around the surgical site, this is normal. 2. Check your temperature on a daily basis. Please note that a low-grade temp below 101 is not uncommon after surgery especially during the first 3 days. Notify the office if your temperature spikes above 101.5 after the 3rd post- operative date. 3. Many patients experience significant swelling in the thigh, this may extend below the knee and sometimes to the ankle. Swelling increases during the first week and subsides during the following week. 4. Provided you have been on a blood thinner since surgery and have been up and about at least three times per day, the risk of a blood clot is low and this swelling is an expected part of recovery. It will largely or completely resolve by your first post-operative visit. 5. [place], if present, will be removed at 2 weeks during initial post-op visit. Medications: 1. You will be discharged with pain medication, Aspirin as a blood thinner and sometimes an anti-inflammatory medication such as Celebrex or Mobic might be prescribed. Please follow the instructions regarding these medicines as provided by your nurse at the hospital. 2. Narcotic pain medication has side effects, including constipation. Please ensure you continue to take stool softeners (Colace, Senna) while taking your pain medication to help protect against constipation. Getting up and moving around at least a few times per day helps with this also. 3. Lovenox 40 Sq x 12 days followed by one regular strength 325 mg coated aspirin daily for 4 weeks after surgery. Then, take one baby aspirin, 81 mg daily for 6 weeks more. A major, yet preventable, complication of Orthopaedic Surgery is a blood clot (DVT). It is important not to miss any doses of this important medication. 4. You should restart all of your prescription medications once discharged unless specifically instructed otherwise. 5. Herbal supplements may be restarted 2 weeks after surgery. Miscellaneous issues: 1. Driving is not permitted within the first 2 weeks. 2. Your first postoperative visit will take place 2weeks after discharge. Please call the office to arrange this appointment. 3. Antibiotic preventative treatment is required before dental or other invasive procedures. Please ask your surgeon about this at your first postoperative visit. Your hip replacement contains metal which may activate metal detectors. You may wish to carry a letter from your surgeon to communicate this to security personnel. If you experience chest pain, shortness of breath or severe painful calf swelling, go to the nearest emergency room to be evaluated. Please call our office once your situation is stabilized. Plan discussed with: Patient Dietary Evaluation Review Comments: CCHO-60 diet Expected Outcomes/Goals: controlled DM, less uremic syndrome Date of Service: Nov 29, 2024 Billing Provider: GERBER FLAHERTY MD Common Visit Codes: NOT BILLABLE RUEL HENDERSON NP Nov 29, 2024 08:08
[2024-11-29] MEDS: MORPHINE SULFATE 4 MG/ML SYR/VIAL IV ONE (13:36)
--- NOTE | 2024-11-29 14:38 | DVHPN2 ---
Subjective Patient reports having 10/10 pain to right hip. Reviewed: Care Plan, H&P, Labs, Medications Changes from previous H/P or p: No Changes General: Per HPI Objective Vitals Vital Signs Date Time Temp Pulse Resp B/P (MAP) Pulse Ox O2 Delivery O2 Flow Rate FiO2 11/29/24 13:36 108 16 164/98 11/29/24 09:00 99.9 90 99.9 11/28/24 19:58 Room Air* 0 21 Intake/Output Intake and Output 11/29/24 07:00 Intake Total 2180 ml Output Total 2505 ml Balance -325 ml Intake Oral 2030 ml IV Total 150 ml Output Urine Total 2505 ml General Appearance: Alert, Oriented X3, Cooperative, No acute distress HEENT: Atraumatic, PERRLA Cardiovascular: Normal S1, Normal S2 Abdomen: Normal bowel sounds, Soft, No tenderness, No hepatospenomegaly Musculoskeletal: Normal sensory function, Normal motor function Neuro: Normal speech Skin: Dry, Intact Psych/Mental Status: Mental status NL, Mood NL Medications Current Medications Medications Dose Ordered Sig/Anjana Route Start Time Stop Time Status Last Admin Dose Admin Ondansetron HCl 4 mg Q4HP PRN IV 11/26/24 19:30 Cefazolin Sodium/ Dextrose 50 ml @ 50 mls/hr Q8HR IV 11/27/24 22:00 11/29/24 13:36 50 MLS/HR Enoxaparin Sodium 40 mg DAILY SC 11/28/24 10:00 11/29/24 10:11 40 MG Pantoprazole Sodium 40 mg DAILY@0600 PO 11/29/24 06:00 11/29/24 06:28 40 MG Diagnostic Test (Pha) 1 strip ACHS 11/28/24 17:00 11/29/24 12:06 1 STRIP Insulin Human Regular HS SC 11/28/24 22:00 11/28/24 21:14 3 UNITS Insulin Human Regular AC SC 11/28/24 17:00 11/29/24 12:06 6 UNITS Dextrose 50 ml UD PRN IV 11/28/24 13:45 Morphine Sulfate 2 mg Q3HPRN PRN IV 11/28/24 13:45 11/29/24 04:20 2 MG Oxycodone/ Acetaminophen 2 tab Q6HP PRN PO 11/28/24 14:45 11/29/24 10:11 2 TAB Docusate Sodium 100 mg BID PO 11/28/24 22:00 11/29/24 10:11 100 MG Laboratory Results Laboratory Tests 11/28/24 10:15 Urinalysis Test 11/27/24 01:47 Urine Color Light-yellow (Yellow) Urine Clarity Clear (Clear) Urine pH 6.5 (5.0-9.0) Urine Specific [place] 1.014 (1.001-1.035) Urine Protein 1+ (Negative) H Urine Ketones Negative (Negative) Urine Blood Trace /uL (Negative) H Urine Nitrite Negative (Negative) Urine Bilirubin Negative (Negative) Urine Urobilinogen Normal mg/dL (Negative) Urine Leukocyte Esterase Negative /uL (Negative) Urine RBC 6 /hpf (0 - 3) Urine Microscopic WBC < 1 /HPF (0-3) Urine Squamous Epithelial Cells None seen /hpf (<5) Urine Bacteria None seen /hpf (None Seen) Urine Mucus Few (None Seen) Urine Glucose 2+ mg/dL (Normal) H Labs and/or images reviewed: Labs reviewed by me, Image(s) reviewed by me Assessment/Plan Assessment/Plan Impression: Right hip pain -CKD stage IIIA -diabetes mellitus -primary hypertension -degenerative joint disease of back, left shoulder, bilateral knee Plan: Events: Patient able to tolerate ambulating today to secondary with the pain. Patient does have some increased swelling to his surgical site as well as noted tremors from the severity of the pain. -repeat labs including CBC -regular insulin sliding scale -pain management: Continue Percocet two tabs q.4 hours as needed. IV morphine, IV Toradol for pain -right hip x-ray -continue postop antibiotic therapy -continue physical therapy. Unable to participate today because of the pain -bowel regimen -PUD, DVT prophylaxis Total time spent with patient discussing and formulating plan of care: 35 minutes. This medical document was created using an electronic medical record system with [employer] dictation system. Although this document has been carefully reviewed, there may still be some phonetic and typographical errors. These areas are purely typographical due to imperfections of the software programs, and do not reflect any compromise in the patient's medical care. Plan discussed with: Patient, Other (RN) My Orders Orders - DALE GREY NP Procedure Category Date Status Time Oxycodone W/ Acet PHA 11/28/24 In Process 5/325mg Tab (Percocet 14:45 Docusate Sodium PHA 11/28/24 In Process Capsule (Colace 22:00 Basic Metabolic Panel LAB 11/29/24 Logged 14:32 Complete Blood Count LAB 11/29/24 Logged 14:32 R Hip Complete Xray XY 11/29/24 Logged 14:32 Ketorolac Injection PHA 11/29/24 Logged (Toradol Injection) 14:45 Date of Service: Nov 29, 2024 Billing Provider: DALE GREY NP Common Visit Codes: [id number] INP/OBS CARE(HIGH) DALE GREY NP Nov 29, 2024 14:38
[2024-11-29 15:16] LABS: Basophils # (auto) 0 10 ^3/uL (0-0.2); Basophils % (auto) 0.4 % (0.0-2.0); Eosinophils # (auto) 0 10 ^3/uL (0-0.8); Eosinophils % (auto) 0.2 % (0.0-7.0); Hematocrit 35.4 % (41.0-53.0); Hemoglobin 12.5 g/dL (13.5-17.5); Lymphocytes # (auto) 1.4 10 ^3/uL (0.4-5.4); Lymphocytes % (auto) 15.2 % (10.0-50.0); Mean Corpuscular Hemoglobin 31.5 pg (28.0-32.0); Mean Corpuscular Hgb Conc. 35.3 g/dL (32.0-36.0); Mean Corpuscular Volume 89.3 fL (80.0-100.0); Monocytes # (auto) 1.4 10 ^3/uL (0-1.3); Monocytes % (auto) 15.3 % (0.0-12.0); Neutrophils # (auto) 6.2 10 ^3/uL (1.6-8.6); Neutrophils % (auto) 68.9 % (37.0-80.0); Platelet Count (auto) 208 10^3/uL (140-450); Red Blood Cells 3.97 10^6/uL (4.5-5.90); Red Cell Distribution Width 14.5 % (11.8-14.3)
--- NOTE | 2024-11-29 15:16 | DVH ---
CLINICAL INDICATION: severe post op pain TECHNIQUE: XY R HIP COMPLETE XRAY Comparison: XY R HIP COMPLETE XRAY on DOS: 11/27/24 FINDINGS/IMPRESSION: : Expected changes post right hip arthroplasty.
[2024-11-29 15:27] LABS: Chloride 100 mmol/L (98-107); Potassium 4.6 mmol/L (3.5-5.1)
[2024-11-29 15:28] LABS: Anion Gap 9 (5-15); Calcium 9.5 mg/dL (8.7-10.4); Carbon Dioxide 26 mmol/L (20-31)
[2024-11-29 15:33] LABS: BUN/Creatinine Ratio 17.3 (10.0-20.0)
[2024-11-29 15:39] LABS: Blood Urea Nitrogen 27 mg/dL (9-23); Glucose 181 mg/dL (74-106); Sodium 135 mmol/L (136-145)
[2024-11-29] MEDS: KETOROLAC TROMETH 30 MG/ML 1ML VIAL IV ONE (16:34)
[2024-11-29] MEDS ORDERED: HYDROMORPHONE HCL 1 MG/ML INJ IV PRN (17:00)
[2024-11-29] MEDS: ACETAMINOPHEN 325 MG TAB PO PRN (17:59)
[2024-11-29] MEDS: cloNIDine HCL 0.1 MG TAB PO ONE (20:36)
[2024-11-29] MEDS: FOLIC ACID 1 MG, MULTIPLE VITAMIN 10 ML, MAGNESIUM SULF SDV 50% 8 MEQ, THIAMINE INJ 100... INJ SCH (22:58)
[2024-11-30] MEDS: HYDROmorphone HCL 2 MG/ML VL/or syr IV PRN (00:09)
[2024-11-30 01:00] VITALS: BP 119/67; PULSE 104; RESP 18; TEMP 98.4; O2SAT 96
[2024-11-30 05:00] VITALS: BP_SYST 114; BP_SYST 119; BP_DIAS 70; BP_DIAS 71; PULSE 62; PULSE 68; RESP 16; RESP 18; TEMP 100.3; TEMP 98.2; O2SAT 94
[2024-11-30 09:00] VITALS: BP 125/75; PULSE 110; RESP 16; TEMP 100.3; O2SAT 97
[2024-11-30] MEDS: amLODIPine BESYLATE 5 MG TAB PO SCH (10:00)
[2024-11-30 13:00] VITALS: BP 99/66; PULSE 96; RESP 16; TEMP 98.1; O2SAT 94
--- NOTE | 2024-11-30 13:28 | DVHPN2 ---
Subjective Patient states that his pain has improved from yesterday. Reviewed: Care Plan, H&P, Labs, Medications Changes from previous H/P or p: Changes General: Per HPI Objective Vitals Vital Signs Date Time Temp Pulse Resp B/P (MAP) Pulse Ox O2 Delivery O2 Flow Rate FiO2 11/30/24 10:36 100 16 111/67 11/30/24 09:00 100.3 97 100.3 11/29/24 20:00 Room Air* 2 N/A Nasal Cannula* Intake/Output Intake and Output 11/30/24 07:00 Intake Total 1100 ml Output Total 902 ml Balance 198 ml Intake Oral 900 ml IV Total 200 ml Output Urine Total 902 ml General Appearance: Alert, Oriented X3, Cooperative, No acute distress HEENT: Atraumatic, PERRLA Cardiovascular: Normal S1, Normal S2 Abdomen: Normal bowel sounds, Soft, No tenderness, No hepatospenomegaly Musculoskeletal: Normal sensory function, Normal motor function Neuro: Normal speech Skin: Dry, Intact Psych/Mental Status: Mental status NL, Mood NL Medications Current Medications Medications Dose Ordered Sig/Anjana Route Start Time Stop Time Status Last Admin Dose Admin Ondansetron HCl 4 mg Q4HP PRN IV 11/26/24 19:30 Enoxaparin Sodium 40 mg DAILY SC 11/28/24 10:00 11/30/24 10:13 40 MG Pantoprazole Sodium 40 mg DAILY@0600 PO 11/29/24 06:00 11/30/24 05:18 40 MG Diagnostic Test (Pha) 1 strip ACHS 11/28/24 17:00 11/30/24 11:42 1 STRIP Insulin Human Regular HS SC 11/28/24 22:00 11/29/24 22:09 4 UNITS Insulin Human Regular AC SC 11/28/24 17:00 11/30/24 11:45 9 UNITS Dextrose 50 ml UD PRN IV 11/28/24 13:45 Oxycodone/ Acetaminophen 2 tab Q6HP PRN PO 11/28/24 14:45 11/30/24 11:23 2 TAB Docusate Sodium 100 mg BID PO 11/28/24 22:00 11/30/24 05:18 100 MG Acetaminophen 650 mg Q4HP PRN PO 11/29/24 18:00 11/30/24 05:21 650 MG Hydromorphone HCl 0.5 mg Q3HPRN PRN IV 11/29/24 20:00 11/30/24 10:09 0.5 MG Amlodipine Besylate 5 mg DAILY PO 11/30/24 10:00 Folic Acid 1 mg/ Multivitamins 10 ml/Magnesium Sulfate 8 meq/ Thiamine HCl 100 mg/Dextrose 1,013.2 ml @ 125.001 mls/hr DAILY@1800 INJ 11/29/24 21:15 11/29/24 22:58 125.001 MLS/HR Insulin Glargine 10 units HS SC 11/30/24 22:00 UNV Piperacillin Sod/ Tazobactam Sod 100 ml @ 25 mls/hr Q8HR IV 11/30/24 14:00 UNV Laboratory Results Laboratory Tests 11/29/24 15:00 Chemistry Test 11/29/24 15:00 Calcium Level 9.5 mg/dL (8.7-10.4) Urinalysis Test 11/27/24 01:47 Urine Color Light-yellow (Yellow) Urine Clarity Clear (Clear) Urine pH 6.5 (5.0-9.0) Urine Specific [place] 1.014 (1.001-1.035) Urine Protein 1+ (Negative) H Urine Ketones Negative (Negative) Urine Blood Trace /uL (Negative) H Urine Nitrite Negative (Negative) Urine Bilirubin Negative (Negative) Urine Urobilinogen Normal mg/dL (Negative) Urine Leukocyte Esterase Negative /uL (Negative) Urine RBC 6 /hpf (0 - 3) Urine Microscopic WBC < 1 /HPF (0-3) Urine Squamous Epithelial Cells None seen /hpf (<5) Urine Bacteria None seen /hpf (None Seen) Urine Mucus Few (None Seen) Urine Glucose 2+ mg/dL (Normal) H Labs and/or images reviewed: Labs reviewed by me, Image(s) reviewed by me Assessment/Plan Assessment/Plan Impression: Right hip pain -CKD stage IIIA -diabetes mellitus -primary hypertension -degenerative joint disease of back, left shoulder, bilateral knee Plan: Events: Patient has low-grade fever. Repeat x-ray of hip, unremarkable other than expected postop changes. Patient's pain better controlled. -repeat labs including CBC -regular insulin sliding scale -pain management: Continue Percocet two tabs q.4 hours as needed. IV morphine, IV Toradol for pain -right hip x-ray -continue postop antibiotic therapy -continue physical therapy. Ambulated 8 ft today. -bowel regimen -PUD, DVT prophylaxis Total time spent with patient discussing and formulating plan of care: 35 minutes. This medical document was created using an electronic medical record system with [employer] dictation system. Although this document has been carefully reviewed, there may still be some phonetic and typographical errors. These areas are purely typographical due to imperfections of the software programs, and do not reflect any compromise in the patient's medical care. Plan discussed with: Patient, Other (RN) My Orders Orders - DALE GREY NP Procedure Category Date Status Time R Hip Complete Xray XY 11/29/24 Resulted 14:32 Amlodipine Tablet PHA 11/30/24 In Process (Norvasc Tablet) 10:00 Folic Acid... PHA 11/29/24 In Process 21:15 Insulin Lantus PHA 11/30/24 Logged (Glargine) (Lantus) 22:00 Piperacillin-Tazob PHA 11/30/24 Logged 3.375gm (Zosyn 3.375g 14:00 Date of Service: Nov 30, 2024 Billing Provider: DALE GREY NP Common Visit Codes: [id number] INP/OBS CARE(HIGH) DALE GREY NP Nov 30, 2024 13:27
[2024-11-30] MEDS: PIPERACILLIN-TAZOB 3.375GM 100 ML IV SCH (14:18)
[2024-11-30 17:00] VITALS: BP 105/69; PULSE 67; RESP 16; TEMP 97.9; O2SAT 95
[2024-11-30] MEDS: LACTULOSE 20Gm/30ML SOLN PO ONE (17:21)
[2024-11-30 21:00] VITALS: BP 111/67; PULSE 109; RESP 18; TEMP 99.8; O2SAT 97
[2024-11-30] MEDS: INSULIN LANTUS (GLARGINE) 1 /0.01ml (100units/ml) SC SCH (21:42)
[2024-12-01] VITALS (7 sets, daily range): BP systolic 93–125; BP diastolic 60–77; PULSE 85–107; RESP 15–18; TEMP 97.2–98.5; O2SAT 94–100
--- NOTE | 2024-12-01 14:41 | DVHPN2 ---
Subjective Patient states that his pain has improved from yesterday. Reviewed: Care Plan, H&P, Labs, Medications Changes from previous H/P or p: No Changes General: Per HPI Objective Vitals Vital Signs Date Time Temp Pulse Resp B/P (MAP) Pulse Ox O2 Delivery O2 Flow Rate FiO2 12/01/24 12:39 97.2 85 16 115/65 (82) 98 97.2 12/01/24 07:45 Room Air* 0 21 Intake/Output Intake and Output 12/01/24 07:00 Intake Total 1000 ml Output Total 850 ml Balance 150 ml Intake Oral 900 ml IV Total 100 ml Output Urine Total 850 ml # Voids 1 General Appearance: Alert, Oriented X3, Cooperative, No acute distress HEENT: Atraumatic, PERRLA Cardiovascular: Normal S1, Normal S2 Abdomen: Normal bowel sounds, Soft, No tenderness, No hepatospenomegaly Musculoskeletal: Normal sensory function, Normal motor function Neuro: Normal speech Skin: Dry, Intact Psych/Mental Status: Mental status NL, Mood NL Medications Current Medications Medications Dose Ordered Sig/Anjana Route Start Time Stop Time Status Last Admin Dose Admin Ondansetron HCl 4 mg Q4HP PRN IV 11/26/24 19:30 Enoxaparin Sodium 40 mg DAILY SC 11/28/24 10:00 12/01/24 08:57 40 MG Pantoprazole Sodium 40 mg DAILY@0600 PO 11/29/24 06:00 12/01/24 05:29 40 MG Diagnostic Test (Pha) 1 strip ACHS 11/28/24 17:00 12/01/24 11:33 1 STRIP Insulin Human Regular HS SC 11/28/24 22:00 11/30/24 21:41 6 UNITS Insulin Human Regular AC SC 11/28/24 17:00 12/01/24 11:34 3 UNITS Dextrose 50 ml UD PRN IV 11/28/24 13:45 Oxycodone/ Acetaminophen 2 tab Q6HP PRN PO 11/28/24 14:45 12/01/24 08:56 2 TAB Docusate Sodium 100 mg BID PO 11/28/24 22:00 12/01/24 08:56 100 MG Acetaminophen 650 mg Q4HP PRN PO 11/29/24 18:00 11/30/24 05:21 650 MG Hydromorphone HCl 0.5 mg Q3HPRN PRN IV 11/29/24 20:00 12/01/24 12:22 0.5 MG Amlodipine Besylate 5 mg DAILY PO 11/30/24 10:00 Insulin Glargine 10 units HS SC 11/30/24 22:00 11/30/24 21:42 10 UNITS Piperacillin Sod/ Tazobactam Sod 100 ml @ 25 mls/hr Q8HR IV 11/30/24 14:00 12/01/24 12:21 25 MLS/HR Folic Acid 1 mg DAILY PO 12/02/24 10:00 Multivitamins 1 tab DAILY PO 12/02/24 10:00 Magnesium Oxide 400 mg DAILY PO 12/02/24 10:00 Thiamine HCl 100 mg DAILY PO 12/02/24 10:00 Laboratory Results Laboratory Tests 11/29/24 15:00 Urinalysis Test 11/27/24 01:47 Urine Color Light-yellow (Yellow) Urine Clarity Clear (Clear) Urine pH 6.5 (5.0-9.0) Urine Specific [place] 1.014 (1.001-1.035) Urine Protein 1+ (Negative) H Urine Ketones Negative (Negative) Urine Blood Trace /uL (Negative) H Urine Nitrite Negative (Negative) Urine Bilirubin Negative (Negative) Urine Urobilinogen Normal mg/dL (Negative) Urine Leukocyte Esterase Negative /uL (Negative) Urine RBC 6 /hpf (0 - 3) Urine Microscopic WBC < 1 /HPF (0-3) Urine Squamous Epithelial Cells None seen /hpf (<5) Urine Bacteria None seen /hpf (None Seen) Urine Mucus Few (None Seen) Urine Glucose 2+ mg/dL (Normal) H Labs and/or images reviewed: Labs reviewed by me, Image(s) reviewed by me Assessment/Plan Assessment/Plan Impression: Right hip pain -CKD stage IIIA -diabetes mellitus -primary hypertension -degenerative joint disease of back, left shoulder, bilateral knee Plan: Events: Patient remained afebrile. Patient ambulating approximately 30 ft. Has not had BM, now complaining of abdominal pain. -repeat labs including CBC -regular insulin sliding scale -pain management: Continue Percocet two tabs q.4 hours as needed. IV morphine, IV Toradol for pain -bowel regimen: Colace, add lactulose q.4 hours until BM -continue postop antibiotic therapy -continue physical therapy. 30 ft -PUD, DVT prophylaxis -reassess for discharge in a.m. Total time spent with patient discussing and formulating plan of care: 35 minutes. This medical document was created using an electronic medical record system with [employer] dictation system. Although this document has been carefully reviewed, there may still be some phonetic and typographical errors. These areas are purely typographical due to imperfections of the software programs, and do not reflect any compromise in the patient's medical care. Plan discussed with: Patient, Other (RN) My Orders Orders - DALE GREY NP Procedure Category Date Status Time Folic Acid Tablet PHA 12/02/24 In Process 10:00 Multiple Vitamin PHA 12/02/24 In Process Tablet (Mvi Tab) 10:00 Magnesium Oxide PHA 12/02/24 In Process Tablet (Mag-Ox Tablet) 10:00 Thiamine Tab PHA 12/02/24 In Process 10:00 Pharmacy UGO 12/01/24 In Process Clarification: 13:14 Date of Service: Dec 01, 2024 Billing Provider: DALE GREY NP Common Visit Codes: [id number] INP/OBS CARE(HIGH) DALE GREY NP Dec 01, 2024 14:41
[2024-12-01] MEDS: MULTIPLE VITAMIN TAB PO ONE (15:06)
[2024-12-01] MEDS: FOLIC ACID 1 MG TAB PO ONE (15:06)
[2024-12-01] MEDS: MAGNESIUM OXIDE 400 MG TAB PO ONE (15:07)
[2024-12-01] MEDS: THIAMINE HCL 100 MG TAB PO ONE (15:07)
[2024-12-01] MEDS: LACTULOSE 20Gm/30ML SOLN PO SCH (17:10)
[2024-12-01] MEDS: MELATONIN 5 MG TAB PO SCH (20:34)
[2024-12-02] VITALS (7 sets, daily range): BP systolic 112–148; BP diastolic 72–92; PULSE 81–101; RESP 16–20; TEMP 97.7–98.9; O2SAT 96–99
[2024-12-02] MEDS: MAGNESIUM OXIDE 400 MG TAB PO SCH (11:05)
[2024-12-02] MEDS: MULTIPLE VITAMIN TAB PO SCH (11:05)
[2024-12-02] MEDS: THIAMINE HCL 100 MG TAB PO SCH (11:05)
[2024-12-02] MEDS: FOLIC ACID 1 MG TAB PO SCH (11:05)
[2024-12-02] MEDS ORDERED: BISACODYL 10 MG RECT SUPP PR PRN (13:00)
--- NOTE | 2024-12-02 14:28 | DVHPN2 ---
Subjective Patient states that his pain has improved from yesterday. Reviewed: Care Plan, H&P, Labs, Medications Changes from previous H/P or p: No Changes General: Per HPI Objective Vitals Vital Signs Date Time Temp Pulse Resp B/P (MAP) Pulse Ox O2 Delivery O2 Flow Rate FiO2 12/02/24 13:02 97 16 136/78 12/02/24 12:02 98.2 99 98.2 12/01/24 20:00 Nasal Cannula* 2 28 Intake/Output Intake and Output 12/02/24 07:00 Intake Total 1340 ml Output Total 1225 ml Balance 115 ml Intake Oral 1040 ml IV Total 300 ml Output Urine Total 1225 ml General Appearance: Alert, Oriented X3, Cooperative, No acute distress HEENT: Atraumatic, PERRLA Cardiovascular: Normal S1, Normal S2 Abdomen: Normal bowel sounds, Soft, No tenderness, No hepatospenomegaly Musculoskeletal: Normal sensory function, Normal motor function Neuro: Normal speech Skin: Dry, Intact Psych/Mental Status: Mental status NL, Mood NL Medications Current Medications Medications Dose Ordered Sig/Anjana Route Start Time Stop Time Status Last Admin Dose Admin Ondansetron HCl 4 mg Q4HP PRN IV 11/26/24 19:30 Enoxaparin Sodium 40 mg DAILY SC 11/28/24 10:00 12/02/24 11:06 40 MG Pantoprazole Sodium 40 mg DAILY@0600 PO 11/29/24 06:00 12/02/24 06:09 40 MG Diagnostic Test (Pha) 1 strip ACHS 11/28/24 17:00 12/02/24 11:30 1 STRIP Insulin Human Regular HS SC 11/28/24 22:00 12/01/24 22:29 4 UNITS Insulin Human Regular AC SC 11/28/24 17:00 12/02/24 11:30 9 UNITS Dextrose 50 ml UD PRN IV 11/28/24 13:45 Oxycodone/ Acetaminophen 2 tab Q6HP PRN PO 11/28/24 14:45 12/01/24 15:08 2 TAB Docusate Sodium 100 mg BID PO 11/28/24 22:00 12/02/24 11:04 100 MG Acetaminophen 650 mg Q4HP PRN PO 11/29/24 18:00 11/30/24 05:21 650 MG Hydromorphone HCl 0.5 mg Q3HPRN PRN IV 11/29/24 20:00 12/02/24 13:02 0.5 MG Amlodipine Besylate 5 mg DAILY PO 11/30/24 10:00 12/02/24 11:06 5 MG Insulin Glargine 10 units HS SC 11/30/24 22:00 12/01/24 22:27 10 UNITS Piperacillin Sod/ Tazobactam Sod 100 ml @ 25 mls/hr Q8HR IV 11/30/24 14:00 12/02/24 06:09 25 MLS/HR Folic Acid 1 mg DAILY PO 12/02/24 10:00 12/02/24 11:05 1 MG Multivitamins 1 tab DAILY PO 12/02/24 10:00 12/02/24 11:05 1 TAB Magnesium Oxide 400 mg DAILY PO 12/02/24 10:00 12/02/24 11:05 400 MG Thiamine HCl 100 mg DAILY PO 12/02/24 10:00 12/02/24 11:05 100 MG Lactulose 30 ml Q4HR PO 12/01/24 18:00 12/02/24 11:05 30 ML Melatonin 5 mg HS PO 12/01/24 22:00 12/01/24 20:34 5 MG Bisacodyl 10 mg DAILYP PRN MO 12/02/24 13:00 Laboratory Results Laboratory Tests 11/29/24 15:00 Urinalysis Test 11/27/24 01:47 Urine Color Light-yellow (Yellow) Urine Clarity Clear (Clear) Urine pH 6.5 (5.0-9.0) Urine Specific [place] 1.014 (1.001-1.035) Urine Protein 1+ (Negative) H Urine Ketones Negative (Negative) Urine Blood Trace /uL (Negative) H Urine Nitrite Negative (Negative) Urine Bilirubin Negative (Negative) Urine Urobilinogen Normal mg/dL (Negative) Urine Leukocyte Esterase Negative /uL (Negative) Urine RBC 6 /hpf (0 - 3) Urine Microscopic WBC < 1 /HPF (0-3) Urine Squamous Epithelial Cells None seen /hpf (<5) Urine Bacteria None seen /hpf (None Seen) Urine Mucus Few (None Seen) Urine Glucose 2+ mg/dL (Normal) H Labs and/or images reviewed: Labs reviewed by me, Image(s) reviewed by me Assessment/Plan Assessment/Plan Impression: Right hip pain -CKD stage IIIA -diabetes mellitus -primary hypertension -degenerative joint disease of back, left shoulder, bilateral knee Plan: Events: Patient afebrile. Still without bowel movement. Dulcolax suppository pending. Plans for DC tomorrow once ambulating and pain has been managed in addition to patient having BM -repeat labs including CBC -regular insulin sliding scale -pain management: Continue Percocet -bowel regimen: Colace, add lactulose q.4 hours until BM -continue postop antibiotic therapy -continue physical therapy. 30 ft -PUD, DVT prophylaxis -reassess for discharge in a.m. Total time spent with patient discussing and formulating plan of care: 35 minutes. This medical document was created using an electronic medical record system with [employer] dictation system. Although this document has been carefully reviewed, there may still be some phonetic and typographical errors. These areas are purely typographical due to imperfections of the software programs, and do not reflect any compromise in the patient's medical care. Plan discussed with: Patient, Other (RN) My Orders Orders - DALE GREY NP Procedure Category Date Status Time Lactulose Oral PHA 12/01/24 In Process 18:00 Dme: Walker DME 12/01/24 Transmitted 14:40 Bisacodyl Suppository PHA 12/02/24 In Process (Dulcolax Supposit 13:00 Date of Service: Dec 02, 2024 Billing Provider: DALE GREY NP Common Visit Codes: [id number] INP/OBS CARE(HIGH) DALE GREY NP Dec 02, 2024 14:28
[2024-12-02] MEDS: BISACODYL 10 MG RECT SUPP PR ONE (15:52)
[2024-12-03 01:00] VITALS: BP 135/81; PULSE 89; RESP 20; TEMP 98.1; O2SAT 94
[2024-12-03] MEDS: hydrALAZINE HCL 20 MG/ML VL IV PRN (02:25)
[2024-12-03 05:00] VITALS: BP 141/75; PULSE 91; RESP 18; TEMP 98.4; O2SAT 98
[2024-12-03 08:00] VITALS: PULSE 85; RESP 18; O2SAT 96
[2024-12-03 09:00] VITALS: BP 132/81; PULSE 85; RESP 18; TEMP 96.9; O2SAT 96
--- NOTE | 2024-12-03 09:47 | ECG ---
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
--- NOTE | 2024-12-03 09:47 | ECG ---
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
[2024-12-03] MEDS ORDERED: PERCOT PO (09:50)
[2024-12-03] MEDS ORDERED: ASPI1TAB20 PO (09:50)
[2024-12-03] MEDS ORDERED: DOCU-94 PO (09:51)
--- NOTE | 2024-12-03 09:56 | DVHDS2 ---
Discharge Summary Date of Admission Nov 26, 2024 at 19:18 Date of Discharge: Dec 03, 2024 Admitting Diagnosis Status post right hip replacement Labs/Diagnostic Data: Laboratory Results Test 12/02/24 16:36 11/29/24 15:00 11/28/24 10:15 11/27/24 01:47 POC Glucose 240 mg/dl (70-106) White Blood Count 9.0 10^3/uL (4.4-10.8) Red Blood Count 3.97 10^6/uL (4.5-5.90) Hemoglobin 12.5 g/dL (13.5-17.5) Hematocrit 35.4 % (41.0-53.0) Mean Corpuscular Volume 89.3 fL (80.0-100.0) Mean Corpuscular Hemoglobin 31.5 pg (28.0-32.0) Mean Corpuscular Hemoglobin Concent 35.3 g/dL (32.0-36.0) Red Cell Distribution Width 14.5 % (11.8-14.3) Platelet Count 208 10^3/uL (140-450) Mean Platelet Volume 7.4 fL (6.9-10.8) Neutrophils (%) (Auto) 68.9 % (37.0-80.0) Lymphocytes (%) (Auto) 15.2 % (10.0-50.0) Monocytes (%) (Auto) 15.3 % (0.0-12.0) Eosinophils (%) (Auto) 0.2 % (0.0-7.0) Basophils (%) (Auto) 0.4 % (0.0-2.0) Neutrophils # (Auto) 6.2 10 ^3/uL (1.6-8.6) Lymphocytes # (Auto) 1.4 10 ^3/uL (0.4-5.4) Monocytes # (Auto) 1.4 10 ^3/uL (0-1.3) Eosinophils # (Auto) 0 10 ^3/uL (0-0.8) Basophils # (Auto) 0 10 ^3/uL (0-0.2) Nucleated Red Blood Cells 0.0 % Sodium Level 135 mmol/L (136-145) Potassium Level 4.6 mmol/L (3.5-5.1) Chloride Level 100 mmol/L (98-107) Carbon Dioxide Level 26 mmol/L (20-31) Anion Gap 9 (5-15) Blood Urea Nitrogen 27 mg/dL (9-23) Creatinine 1.56 mg/dL (0.700-1.30) Glomerular Filtration Rate Calc 45 mL/min (>90) BUN/Creatinine Ratio 17.3 (10.0-20.0) Serum Glucose 181 mg/dL (74-106) Calcium Level 9.5 mg/dL (8.7-10.4) Hemoglobin A1c 8.1 % A1C (<5.7) Urine Color Light-yellow (Yellow) Urine Clarity Clear (Clear) Urine pH 6.5 (5.0-9.0) Urine Specific [place] 1.014 (1.001-1.035) Urine Protein 1+ (Negative) Urine Ketones Negative (Negative) Urine Blood Trace /uL (Negative) Urine Nitrite Negative (Negative) Urine Bilirubin Negative (Negative) Urine Urobilinogen Normal mg/dL (Negative) Urine Leukocyte Esterase Negative /uL (Negative) Urine RBC 6 /hpf (0 - 3) Urine Microscopic WBC < 1 /HPF (0-3) Urine Squamous Epithelial Cells None seen /hpf (<5) Urine Bacteria None seen /hpf (None Seen) Urine Mucus Few (None Seen) Urine Glucose 2+ mg/dL (Normal) Test 11/26/24 12:53 Prothrombin Time 11.8 sec (9.3-11.8) Prothrombin Time INR 1.13 (0.9-1.15) Activated Partial Thromboplast Time 28.9 SEC (24.5-34.5) Other Laboratory Tests 11/29/24 15:00 Brief Hx & Hospital Course: History of Present Illness 79-year-old male presents for evaluation of right hip pain. Patient with a history of chronic right hip pain was sent in by his orthopedic surgeon to have a right hip replacement tomorrow morning. Denies any other acute complaints. Course of hospitalization: Postoperatively the patient had issues with pain management, intermittent fevers, without any leukocytosis. Patient also had problems with constipation. All issues have resolved. Patient was ambulated of the 50 ft. Patient will be discharged home with Percocet 10/3251 tablets every 8 hours as needed for [id number] pain. He will also be provided Colace as instructed to continue all he has home medications. He will follow up with the discharge Clinic in one week as well as postoperative follow up with orthopedic surgeon. With respect to DME patient has a walker. Patient was agreeable with discharge plan. All questions answered. Physical examination General: Alert and Oriented x3. No acute distress. Well-nourished. Eyes: EOMI. Anicteric. HENT: Moist mucous membranes. Lungs: Clear to auscultation bilaterally. No accessory muscle use. Cardiovascular: Regular rate and rhythm. No murmur. No JVD. Abdomen: Soft, non-tender and non-distended. No palpable masses. Extremities: No edema. Non-tender. Skin: No rashes or lesions. Warm. Neurologic: No focal neurological deficits. CN II-XII grossly intact, but not individually tested. Psychiatric: Cooperative. Appropriate mood and affect. Total time spent with patient discussing and formulating plan of care: 35 minutes. This medical document was created using an electronic medical record system with [employer] dictation system. Although this document has been carefully reviewed, there may still be some phonetic and typographical errors. These areas are purely typographical due to imperfections of the software programs, and do not reflect any compromise in the patient's medical care. Operations or Procedures 11/27/2024: Total right hip replacement Condition at Discharge: Good Final Diagnosis/Problems List Status post total right hip replacement Secondary diagnosis: Right hip pain -CKD stage IIIA -diabetes mellitus -primary hypertension -degenerative joint disease of back, left shoulder, bilateral knee Discharge Disposition: Home Discharge Instruct/Medications Diet: Consistent carbohydrate Activity: No Restrictions, As Tolerated Follow Up/Referral: Follow up with Orthopedic surgery in one week Follow up with discharge Clinic in one week Medications: Continue all previous home medications Percocet 5/325 two tablets q.6 hours as needed for [id number]-[id number] pain. Colace 100 mg p.o. b.i.d. stop with diarrhea 36 Discharge Statement: "Patient was advised to return to the ER or call 911 if any headaches, dizziness, shortness of breath, chest pain, abdominal pain, bleeding, fevers, or worsening of medical condition. Patient was counseled about treatment plan, medications, possible side effects, patientverbalized understanding. All questions were answered to the best of my ability. This discharge took greater then 30 minutes in planning, reviewing documentation, counseling the patient, and discussing with other team members." DME: Diagnosis: Right hip replacement ASSESSMENT ASSESSMENT Assessment Status post total right hip replacement Date of Service: Dec 03, 2024 Billing Provider: DALE GREY NP Common Visit Codes: [id number] INP/OBS CARE (HIGH) DALE GREY NP Dec 03, 2024 09:56
[2024-12-03 12:29] VITALS: BP 125/85; PULSE 65; RESP 20; TEMP 97.6; O2SAT 97
[2024-12-03 13:00] VITALS: BP 125/85; PULSE 65; RESP 20; TEMP 97.6; O2SAT 97
--- NOTE | 2024-12-05 07:27 | ECG ---
[facility] Test Date: 2024-12-03 Test Time: 01:49:24 Pat Name: JACKY LOZANO Department: Respiratoy Room: [address] [place] [address] 8 Gender: M Supervisor [employer]: REJI : 1945 Requested By: JOHNIE BARRAZA Order Number: [id number] Reading MD: Russell Fox Measurements Intervals [place] Rate: 87 P: -43 IL: 210 QRS: -70 QRSD: 135 T: 39 QT: 390 QTc: 470 Interpretive Statements Sinus rhythm Right bundle branch block Inferior infarct, old Electronically Signed On 12-05-2024 17:22:53 PDT by Russell Fox Please click the below link to view image of tracing.
--- NOTE | 2024-12-05 07:27 | ECG ---
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
== END 2024-12-03 17:45 | disposition home or self-care (01) | DRG 470 ==
LOC: ER 11:54 → OVERFLOW 19:18 → EAST 21:30 → TELE-EAST 12-03 05:28
PROVIDERS: ADMIT Nurse Practitioner Acute Care; ATTEND Nurse Practitioner Acute Care
PROC: 0SR90JZ Replacement of Right Hip Joint with Synthetic Substitute, Open Approach (ICD-10-PCS; principal; 2024-11-27 13:40)
DX: M16.11 Unilateral primary osteoarthritis, right hip (principal); N18.31 Chronic kidney disease, stage 3a; E11.22 Type 2 diabetes mellitus with diabetic chronic kidney disease; I12.9 Hypertensive chronic kidney disease with stage 1 through stage 4 chronic kidney disease, or unspecified chronic kidney disease; Z96.641 Presence of right artificial hip joint; Z79.899 Other long term (current) drug therapy
CPT/HCPCS: 36415; 71045; 72170; 73502; 80048; 81001; 82962; 83036; 85025; 85610; 85730; 86850; 86900; 86901; 93005; 96361; 96374; 97110; 97116; 97163; 97530; G0378; J1100; J1815; J1885; J2250; J2405; J2543; J2704